=== PATIENT | female | born 1940 | race Caucasian/White ===

== ENCOUNTER → 2016-05-08 | Outpatient (CLI) | payer OTHER ==
[~2016-05-08] VITALS: Ht 157.5 cm; Wt 73.5 kg
[~2016-05-08] MED LIST: ADULT LOW DOSE81 M1 PO; ADVAIR HFA120 INHALA IH; ALDACTONE25 MG PO; ALLEGRA30 MG PO; ALPRAZOLAM0.25 M2 GT; ALPRAZOLAM0.25 M2 PO; ALPRAZOLAM0.5 MG PO; AMLODIPINE BESYL5 MG PO; ASPIRIN81 M1 PO; ASPIRIN81 M2 PO; ATORVASTATIN CA40 MG PO; AZELASTINE137 MCG/0. BOTH NARES; BACTRIM,SEPT1 TABLET PO; BUMETANIDE0.5 MG PO; BUMEX0.5 MG PO; BUSPIRONE HCL5 MG PO; CALTRATE 600+D1 EAC1 PO; CLOPIDOGREL75 MG PO; Ceftin PO; DIOVAN HCT 11 TABLET PO; DOCUSATE SODIU100 MG PO; DUONEB 2.5-0.5 M3 ML AEROSOL; ESCITALOPRAM OXA5 MG PO; IMDUR30 MG PO; ISOSORBIDE MONO30 MG PO; KEFLEX500 MG PO; LEVOTHYROXINE88 MCG PO; LEVOXYL88 MCG PO; LIPITOR40 MG PO; LOFIBRA,TRIGLI160 MG PO; MAG-OXIDE400 MG PO; MAGNESIUM OXID400 MG PO; MAGNESIUM250 M1 PO; MAGNESIUM250 MG PO; MAGOX 400400 MG PO; METOPROLOL TAR100 MG PO; METOPROLOL TART50 MG PO; MIRALAX17 GM PO; MIRALAX255 GM PO; NASACORT AQ16.5 GM NS; NORVASC5 MG PO; OMEPRAZOLE20 MG PO; ONE-A-DAY WOME1 EAC5 PO; OS-CAL 500+D T1 EAC1 PO; PLAVIX75 MG PO; PREDNISONE5 MG PO; PRILOSEC20 MG PO; PRINZIDE 20-121 EACH PO; PROTONIX40 MG PO; PROVENTIL,2.5 MG/3 M IH; SPIRIVA RESPIMAT4 GM IH; SPIRONOLACTONE25 MG PO; TIROSINT88 MCG PO; TOPROL XL100 MG PO; TRICOR145 MG PO; XANAX0.25 MG PO; ZETIA10 MG PO
== END | disposition home or self-care (01) ==
LOC: AMB 03-26 12:00 → OPR 03-26 14:00 → AMB 03-29 12:00
DX: R10.13 Epigastric pain (principal); K21.9 Gastro-esophageal reflux disease without esophagitis; Z09 Encounter for follow-up examination after completed treatment for conditions other than malignant neoplasm; K62.1 Rectal polyp; R19.7 Diarrhea, unspecified; Z86.010 Personal history of colon polyps; K57.90 Diverticulosis of intestine, part unspecified, without perforation or abscess without bleeding; K64.9 Unspecified hemorrhoids; I10 Essential (primary) hypertension; E78.5 Hyperlipidemia, unspecified; Z79.899 Other long term (current) drug therapy
CPT/HCPCS: 88305; B4087; J2250; J3010

== ENCOUNTER 2016-09-23 08:26 | Inpatient (IN) | payer OTHER ==
[~2016-09-23] VITALS: Ht 157.5 cm; Wt 70.9 kg
[2016-09-23 08:58] LABS: HEMATOCRIT 36.6 % (36.0-46.0); MCH 25.4 PG (29.0-34.0); MCHC 30.9 G/DL (30.0-36.0); MCV 82.2 FL (83-99); MEAN PLAT.VOLUME 9.3 uM^3 (9.5-12.4); PLATELET COUNT 384 K/uL (156-360); RBC DIS.WIDTH-CV 15.3 % (11.8-14.6); RBC DIS.WIDTH-SD 46.1 % (39-53); RED BLOOD COUNT 4.45 M/uL (3.80-5.20); WHITE BLOOD COUNT 11.5 K/uL (4.1-10.2)
[2016-09-23 09:27] LABS: CHLORIDE 104 MEQ/L (99-109); GFR ESTIMATE (CALCULATED) > 59 mL/min/; GLUCOSE 89 mg/dL (70-99); POTASSIUM 3.7 MEQ/L (3.7-5.4); SODIUM 144 MEQ/L (136-147); UREA NITROGEN (BUN) 18 mg/dL (9-23)
[2016-09-23 09:37] LABS: ALKALINE PHOSPHATASE 115 IU/L (3-129); ANION GAP 15 MEQ/L (2-14); LIPASE 27 U/L (1.0-51.0); SAMPLE HEMOLYSIS CHECK 0; SAMPLE ICTERIC CHECK 0; SAMPLE LIPEMIA CHECK 0; TOTAL BILIRUBIN 0.3 MG/DL (0.0-1.0)
[2016-09-23 10:08] LABS: ADD MIUA? YES; BILIRUBIN NEGATIVE; BLOOD SMALL; COLOR YELLOW ((YELLOW)); GLUCOSE (STRIP) NEGATIVE; KETONES NEGATIVE; LEUKOCYTES LARGE; NITRITE NEGATIVE; PROTEIN (STRIP) NEGATIVE; SPECIFIC GRAVITY 1.006 (1.000-1.030); UROBILINOGEN 0.2 MG/DL (0.2-1.0)
[2016-09-23 10:17] LABS: BACTERIA RARE /HPF; EPITHELIAL CELLS 1+ /HPF; MUCUS NONE SEEN /LPF
[2016-09-23 13:11] LABS: MAGNESIUM < 0.5 mg/dl (1.3-2.7)
[2016-09-23] MEDS ORDERED: DUONEB 2.5-0.5 M3 ML AEROSOL (14:28)
[2016-09-23] MEDS ORDERED: LOPRESSOR50 MG PO (14:29)
[2016-09-23] MEDS ORDERED: VENTOLIN HFA18 GM IH (14:31)
[2016-09-23] MEDS ORDERED: MAGNESIUM400 M1 PO (14:31)
[2016-09-23] MEDS ORDERED: CENTRUM SILVER1 EAC3 PO (14:32)
[2016-09-23] MEDS ORDERED: ZOFRAN ODT4 MG PO (14:32)
[2016-09-23] MEDS ORDERED: SUPER B COMP1 TABLET PO (14:34)
[2016-09-23 14:45] LABS: DIRECT BILIRUBIN 0.1 mg/dL (0.0-0.3)
[2016-09-23 16:54] VITALS: BP 120/69
[2016-09-23 19:55] VITALS: BP 137/61
[2016-09-23 20:10] LABS: INTACT PARATHYROID HORMONE 45 pg/mL (10-69)
[2016-09-23 20:11] LABS: ANION GAP 14 MEQ/L (2-14); CHLORIDE 105 MEQ/L (99-109); GFR ESTIMATE (CALCULATED) > 59 mL/min/; GLUCOSE 121 mg/dL (70-99); POTASSIUM 3.5 MEQ/L (3.7-5.4); SAMPLE HEMOLYSIS CHECK 0; SAMPLE ICTERIC CHECK 0; SAMPLE LIPEMIA CHECK 0; SODIUM 145 MEQ/L (136-147); UREA NITROGEN (BUN) 16 mg/dL (9-23)
[2016-09-24] VITALS (7 sets, daily range): BP systolic 119–143; BP diastolic 57–83
[2016-09-24 07:45] LABS: ANION GAP 12 MEQ/L (2-14); CHLORIDE 106 MEQ/L (99-109); GFR ESTIMATE (CALCULATED) > 59 mL/min/; GLUCOSE 103 mg/dL (70-99); POTASSIUM 3.7 MEQ/L (3.7-5.4); SAMPLE HEMOLYSIS CHECK 0; SAMPLE ICTERIC CHECK 0; SAMPLE LIPEMIA CHECK 0; SODIUM 146 MEQ/L (136-147); UREA NITROGEN (BUN) 10 mg/dL (9-23)
[2016-09-24 12:48] LABS: MAGNESIUM 0.9 mg/dl (1.3-2.7)
[2016-09-25 04:13] VITALS: BP 130/69
[2016-09-25 06:59] LABS: ANION GAP 9 MEQ/L (2-14); CHLORIDE 104 MEQ/L (99-109); GFR ESTIMATE (CALCULATED) > 59 mL/min/; GLUCOSE 78 mg/dL (70-99); POTASSIUM 4.2 MEQ/L (3.7-5.4); SAMPLE HEMOLYSIS CHECK 0; SAMPLE ICTERIC CHECK 0; SAMPLE LIPEMIA CHECK 0; SODIUM 145 MEQ/L (136-147); UREA NITROGEN (BUN) 10 mg/dL (9-23)
[2016-09-25 07:00] LABS: MAGNESIUM 1.4 mg/dl (1.3-2.7)
[2016-09-25 08:04] VITALS: BP 125/65
[2016-09-25 08:39] LABS: HEMATOCRIT 32.5 % (36.0-46.0); MCH 25.4 PG (29.0-34.0); MCHC 30.5 G/DL (30.0-36.0); MCV 83.3 FL (83-99); MEAN PLAT.VOLUME 9.8 uM^3 (9.5-12.4); PLATELET COUNT 347 K/uL (156-360); RBC DIS.WIDTH-CV 15.3 % (11.8-14.6); WHITE BLOOD COUNT 10.3 K/uL (4.1-10.2)
[2016-09-25 10:35] LABS: D-DIMER ELISA 1.01 mg/L FEU (< 0.57)
[2016-09-25 12:22] VITALS: BP 130/52
[2016-09-25 12:46] LABS: HEMATOCRIT 34.4 % (36.0-46.0); MCV 83.7 FL (83-99)
== END 2016-09-25 16:26 | disposition home or self-care (01) | DRG 204 ==
LOC: EME → EDBD 08:26 → EDOF 13:38 → 5SOUTH 13:38
PROVIDERS: Hospitalist; Internal Medicine; Nurse Practitioner Family; Physician Assistant Medical
DX: R91.8 Other nonspecific abnormal finding of lung field (principal); E83.42 Hypomagnesemia; E83.51 Hypocalcemia; J96.10 Chronic respiratory failure, unspecified whether with hypoxia or hypercapnia; J44.9 Chronic obstructive pulmonary disease, unspecified; R11.2 Nausea with vomiting, unspecified; E03.9 Hypothyroidism, unspecified; I25.10 Atherosclerotic heart disease of native coronary artery without angina pectoris; I10 Essential (primary) hypertension; F17.210 Nicotine dependence, cigarettes, uncomplicated; E78.5 Hyperlipidemia, unspecified; Z99.81 Dependence on supplemental oxygen; Z95.5 Presence of coronary angioplasty implant and graft; Z90.49 Acquired absence of other specified parts of digestive tract; K52.9 Noninfective gastroenteritis and colitis, unspecified
CPT/HCPCS: 36415; 71020; 71275; 74177; 80048; 80048 91; 80053; 80076; 81003; 82248; 82272; 82306; 82310; 82330; 83630; 83690; 83735; 83970; 85014; 85018; 85025; 85027; 85379; 87177; 87206; 87329; 87493; 87506; 89125; 93005; 94640; 94640 76; 94760; 94799; 99281; 99285; J0610; J0696; J1650; J2405; J3475; J7030; J7050; S0028